=== PATIENT | male | born 1970 | race American Indian/Alaskan Native ===

== ENCOUNTER 2022-02-15 10:59 | Outpatient (CLI) | payer OTHER ==
[2022-02-21 10:25] LABS: CD4/CD8 Ratio 0.77 (0.86-5.00)
== END 2022-02-15 11:00 | disposition home or self-care (01) ==
LOC: LAB 10:59
PROVIDERS: ATTEND Internal Medicine
DX: B20 Human immunodeficiency virus [HIV] disease (principal); E11.9 Type 2 diabetes mellitus without complications
CPT/HCPCS: 36415; 82024